=== PATIENT | female | born 1950 | race African-American/Black ===

== ENCOUNTER 2018-02-01 00:16 | Inpatient (IN) ==
[2018-02-01] MEDS ORDERED: diphenhydrAMINE CAP 25 MG CAPSULE PO PRN (00:36)
[2018-02-01] MEDS ORDERED: DEXTROSE 50% 25 GM/50 ML SYRINGE IV PRN ×2 (00:36)
[2018-02-01] MEDS ORDERED: SODIUM PHOSPHATE INJ 13.4 MMOL in SODIUM CHLORIDE 0.9% 250 ML IV PRN (00:36)
[2018-02-01] MEDS ORDERED: INSULIN REGULAR 100 UNIT/ML IV ONE (00:36)
[2018-02-01] MEDS ORDERED: ONDANSETRON 4 MG/2 ML VIAL IV PRN (00:36)
[2018-02-01] MEDS ORDERED: MAGNESIUM SULF RIDER 2 GM in PREMIX 1 EACH IV PRN (00:36)
[2018-02-01] MEDS ORDERED: POTASSIUM CHLORIDE RIDER 10 MEQ in PREMIX 1 EACH IV PRN (00:36)
[2018-02-01] MEDS ORDERED: ALBUTEROL 2.5 MG/3 ML NEB RESP TX PRN (00:36)
[2018-02-01] MEDS ORDERED: MAGNESIUM SULF RIDER 4 GM in PREMIX 1 EACH IV PRN (00:36)
[2018-02-01] MEDS ORDERED: LORazepam 2 MG/1 ML VIAL IV ONE (00:48)
[2018-02-01] MEDS ORDERED: INSULIN REGULAR DRIP 100 ML IV SCH (01:00)
[2018-02-01] MEDS ORDERED: SODIUM BICARBONATE 50 MEQ/50 ML SYRINGE IV ONE (01:33)
[2018-02-01] MEDS ORDERED: LEVOFLOXACIN INJ 500 MG in PREMIX 1 EACH IV SCH (02:30)
[2018-02-01] MEDS: HEPARIN 5,000 UNIT/1 ML VIAL SUBCUT SCH ×3 (03:53→17:32)
[2018-02-01] MEDS: SODIUM CHLOR 0.45% KCL 20 MEQ 20 MEQ/1,000 ML BAG IV SCH ×3 (06:14→17:22)
[2018-02-01] MEDS: NYSTATIN 500,000 UNIT/5 ML UDCUP SWISH/SWAL SCH ×4 (11:06→20:55)
[2018-02-01] MEDS: PANTOPRAZOLE 40 MG VIAL IV SCH (11:06)
[2018-02-01] MEDS ORDERED: AMIODARONE 200 MG TABLET PO SCH (12:30)
[2018-02-01] MEDS ORDERED: METOPROLOL TARTRATE 50 MG TABLET PO SCH (12:30)
[2018-02-01] MEDS ORDERED: SERTRALINE 50 MG TABLET PO SCH (12:30)
[2018-02-01] MEDS: ASPIRIN EC 81 MG TABLET PO SCH (13:27)
[2018-02-01] MEDS: HALOPERIDOL 5 MG/ML AMP IM PRN ×2 (13:44→22:13)
[2018-02-01] MEDS ORDERED: GABAPENTIN 100 MG CAPSULE PO SCH (15:00)
[2018-02-01] MEDS ORDERED: WARFARIN 5 MG TABLET PO SCH (18:00)
[2018-02-02] MEDS: DEXTROSE 5% NACL 0.45% 1,000 ML IV SCH ×2 (01:35→12:43)
[2018-02-02] MEDS: HEPARIN 5,000 UNIT/1 ML VIAL SUBCUT SCH ×3 (03:58→18:30)
[2018-02-02] MEDS: ASPIRIN EC 81 MG TABLET PO SCH (09:00)
[2018-02-02] MEDS: PANTOPRAZOLE 40 MG VIAL IV SCH (09:00)
[2018-02-02] MEDS: CARVEDILOL 6.25 MG TABLET PO SCH ×2 (09:00→21:28)
[2018-02-02] MEDS: NICOTINE 21 MG/24 HR PATCH TRANSDERM SCH (09:00)
[2018-02-02] MEDS: NYSTATIN 500,000 UNIT/5 ML UDCUP SWISH/SWAL SCH ×4 (09:00→21:28)
[2018-02-02] MEDS: INSULIN GLARGINE 100 UNIT/ML SUBCUT SCH (09:00)
[2018-02-02] MEDS ORDERED: GLUCAGON 1 MG VIAL IM PRN (12:00)
[2018-02-02] MEDS ORDERED: MORPHINE 4 MG/1 ML VIAL IV PRN (12:07)
[2018-02-02] MEDS ORDERED: PROMETHAZINE 25 MG/1 ML VIAL IM PRN (12:12)
[2018-02-02] MEDS: cefTRIAXone 1,000 MG in SYRINGE 1 EACH IV SCH ×2 (12:28→16:43)
[2018-02-02] MEDS: INSULIN REGULAR 100 UNIT/ML SUBCUT SCH ×3 (12:30→21:29)
[2018-02-02] MEDS: MEMANTINE 5 MG TABLET PO SCH ×2 (12:30→21:28)
[2018-02-02 13:32] LABS: Allen Test Positive; Pt O2 Delivery Device Room Air
[2018-02-02 13:34] LABS: ABG HCO3 13.8 MMOL/L (20-26); ABG PCO2 40.6 MM HG (35-48); ABG PO2 83.1 MM HG (80-95)
[2018-02-02 13:35] LABS: ABG Base Excess -13.7 MMOL/L (-2.5-2.5); ABG Oxygen Saturation 94.1 % (95-100); ABG TCO2 13.6 MMOL/L (23-27)
[2018-02-02 13:41] LABS: ABG PH 7.162 (7.35-7.45)
[2018-02-02 13:51] LABS: Ammonia 26 UMOL/L (11-32); Lactic Acid 9.1 MMOL/L (0.4-2.0)
[2018-02-02 13:53] LABS: Calcium 8.9 MG/DL (8.5-10.1)
[2018-02-02 13:54] LABS: Osmolality,Calculated 351.5 MOS/KG (273-304); Potassium 3.4 MMOL/L (3.5-5.1)
[2018-02-02 13:56] LABS: VBG HCO3 19.3 MEQ/L (24-28); VBG Oxygen Saturation 84.4 %; VBG PCO2 57.5 MMHG (41-51); VBG PH 7.204; VBG PO2 54.7 MMHG (17-40)
[2018-02-02 13:59] LABS: Calcium 8.5 MG/DL (8.5-10.1)
[2018-02-02 14:00] LABS: Osmolality,Calculated 324.4 MOS/KG (273-304); Potassium 4.8 MMOL/L (3.5-5.1)
[2018-02-02 14:02] LABS: Calcium 8.2 MG/DL (8.5-10.1); Potassium 4.2 MMOL/L (3.5-5.1)
[2018-02-02 14:10] LABS: Osmolality,Calculated 311.4 MOS/KG (273-304); Potassium 5.5 MMOL/L (3.5-5.1)
[2018-02-02 14:17] LABS: Alanine Aminotransferase 13 U/L (13-56); Albumin 3.4 G/DL (3.4-5.0); Alkaline Phosphatase 157 U/L (45-117); Aspartate Amino Transferase 5 U/L (0-37); Bilirubin,Total < 0.39 MG/DL (0.2-1.0); Blood Urea Nitrogen 40 MG/DL (7-18); Calcium 9.3 MG/DL (8.5-10.1); Total Protein 8.2 G/DL (6.4-8.3)
[2018-02-02 14:18] LABS: Glucose 1269 MG/DL (74-106); Osmolality,Calculated 353.4 MOS/KG (273-304); Potassium 3.4 MMOL/L (3.5-5.1); Sodium 140 MMOL/L (136-145)
[2018-02-02 14:30] LABS: Lactic Acid 6.2 MMOL/L (0.4-2.0)
[2018-02-02 14:34] LABS: Calcium 8.7 MG/DL (8.5-10.1); Osmolality,Calculated 343.3 MOS/KG (273-304); Potassium 3.6 MMOL/L (3.5-5.1)
[2018-02-02 14:48] LABS: Hemoglobin 10.8 GM/DL (12.0-16.0); Red Blood Count 3.58 MC/CUMM (3.8-5.5); White Blood Count 20.3 T/CUMM (4-12)
[2018-02-02 14:49] LABS: Basophils % 0.1 % (0.0-0.8); Hematocrit 35.3 VOL% (35.7-47.0); Lymphocytes % 5.8 % (21.3-54.2); Mean Corpuscular HGB Conc 30.6 GM/DL (32-36); Mean Corpuscular Hemoglobin 30 PG (27-34); Mean Corpuscular Volume 98.6 FL (87-102); Mean Platelet Volume 13.7 FL (9.6-12.0); Monocytes % 8.3 % (1.7-12.7); Neutrophils % 84.7 % (38.7-73.9); Platelet Count 196 T/CUMM (130-400)
[2018-02-02 14:50] LABS: Immature Granulocytes % 1.1 %; Immature Granulocytes Absolute 0.22 #; Lymphocytes # 1.2 10*3/uL (1.4-4.0); Monocytes # 1.7 10*3/uL (0.11-0.8); Neutrophils # 17.2 10*3/uL (1.4-7.4)
[2018-02-02 15:54] LABS: Calcium 8.1 MG/DL (8.5-10.1)
[2018-02-02 16:10] LABS: Red Blood Count 3.11 MC/CUMM (3.8-5.5); White Blood Count 18.2 T/CUMM (4-12)
[2018-02-02 16:11] LABS: Hemoglobin 9.2 GM/DL (12.0-16.0); Lymphocytes % 8.5 % (21.3-54.2); Mean Corpuscular HGB Conc 32.9 GM/DL (32-36); Mean Corpuscular Hemoglobin 30 PG (27-34); Mean Platelet Volume 12.8 FL (9.6-12.0); Neutrophils % 85.4 % (38.7-73.9); Platelet Count 195 T/CUMM (130-400); Red Cell Distribution Width 11.8 % (9.3-17.3)
[2018-02-02 16:12] LABS: Basophils % 0.1 % (0.0-0.8); Eosinophils % 0.1 % (0.00-10.9); Immature Granulocytes % 0.6 %; Monocytes % 5.3 % (1.7-12.7); Neutrophils # 15.5 10*3/uL (1.4-7.4)
[2018-02-02 16:16] LABS: Lymphocytes # 1.6 10*3/uL (1.4-4.0)
[2018-02-02 16:18] LABS: PT Patient Result 10.8 SECS
[2018-02-02 16:25] LABS: Urine Color Yellow (Yellow)
[2018-02-02 16:26] LABS: Apearance,Urine Slightly Hazy (Clear); Bilirubin,Urine Negative (Negative); Blood, Urine Small mg/dL (Negative); Glucose,Urine (UA) >=500 mg/dL (Negative); Ketones,Urine Negative (Negative); Nitrite,Urine Negative (Negative); Protein,Urine Negative; Urine Specific Gravity 1.026 (1.001-1.035); Urine Urobilinogen < 2.0 EU/DL (0.2-1.0)
[2018-02-02 16:27] LABS: Bacteria,Urine Occasional /HPF (Few); RBC,Urine <1 /HPF (0-4); WBC,Urine 1 /HPF (0-6)
[2018-02-02 16:35] LABS: PT Patient Result 10.8 SECS
[2018-02-02 16:37] LABS: Hematocrit 29.9 VOL% (35.7-47.0); Mean Corpuscular HGB Conc 33.4 GM/DL (32-36); Mean Corpuscular Hemoglobin 30 PG (27-34); Mean Corpuscular Volume 90.6 FL (87-102); Mean Platelet Volume 13.3 FL (9.6-12.0); Neutrophils % 77.8 % (38.7-73.9); Platelet Count 188 T/CUMM (130-400); Red Cell Distribution Width 11.7 % (9.3-17.3); White Blood Count 17.7 T/CUMM (4-12)
[2018-02-02 16:38] LABS: Basophils % 0.2 % (0.0-0.8); Eosinophils # 0.1 10*3/uL (0.0-0.87); Eosinophils % 0.6 % (0.00-10.9); Immature Granulocytes % 0.4 %; Immature Granulocytes Absolute 0.07 #; Lymphocytes # 2.7 10*3/uL (1.4-4.0); Lymphocytes % 15.1 % (21.3-54.2); Monocytes # 1.1 10*3/uL (0.11-0.8); Monocytes % 5.9 % (1.7-12.7); Neutrophils # 13.8 10*3/uL (1.4-7.4)
[2018-02-02 16:40] LABS: Bilirubin,Total 0.5 MG/DL (0.2-1.0); Calcium 8.4 MG/DL (8.5-10.1); Total Protein 7.4 G/DL (6.4-8.3)
[2018-02-02] MEDS: DONEPEZIL 5 MG TABLET PO SCH (21:27)
[2018-02-03 02:45] LABS: Calcium 7.6 MG/DL (8.5-10.1); Osmolality,Calculated 290.7 MOS/KG (273-304); Potassium 3.7 MMOL/L (3.5-5.1)
[2018-02-03] MEDS: HEPARIN 5,000 UNIT/1 ML VIAL SUBCUT SCH ×3 (03:04→18:07)
[2018-02-03 07:09] LABS: Total Cells Counted 0
[2018-02-03] MEDS: INSULIN REGULAR 100 UNIT/ML SUBCUT SCH ×4 (08:21→23:29)
[2018-02-03] MEDS: MEMANTINE 5 MG TABLET PO SCH ×2 (08:54→23:29)
[2018-02-03] MEDS: CARVEDILOL 6.25 MG TABLET PO SCH ×2 (08:54→23:28)
[2018-02-03] MEDS: INSULIN GLARGINE 100 UNIT/ML SUBCUT SCH (08:55)
[2018-02-03] MEDS: ASPIRIN EC 81 MG TABLET PO SCH (08:55)
[2018-02-03] MEDS: NYSTATIN 500,000 UNIT/5 ML UDCUP SWISH/SWAL SCH ×4 (08:55→23:29)
[2018-02-03] MEDS: NICOTINE 21 MG/24 HR PATCH TRANSDERM SCH ×3 (09:00→10:17)
[2018-02-03] MEDS: SODIUM CHLOR 0.45% KCL 20 MEQ 20 MEQ/1,000 ML BAG IV SCH (09:07)
[2018-02-03] MEDS ORDERED: INSULIN GLARGINE 100 UNIT/ML SUBCUT SCH (13:31)
[2018-02-03] MEDS ORDERED: INSULIN GLARGINE 100 UNIT/ML SUBCUT ONE (14:00)
[2018-02-03] MEDS: INSULIN LISPRO 100 UNIT/ML SUBCUT SCH (17:12)
[2018-02-03] MEDS: DONEPEZIL 5 MG TABLET PO SCH (23:29)
[2018-02-04] MEDS: HEPARIN 5,000 UNIT/1 ML VIAL SUBCUT SCH ×2 (04:48→10:39)
[2018-02-04] MEDS: SODIUM CHLOR 0.45% KCL 20 MEQ 20 MEQ/1,000 ML BAG IV SCH ×2 (04:49→11:17)
[2018-02-04 05:56] LABS: Basophils % 0.1 % (0.0-0.8); Eosinophils # 0.1 10*3/uL (0.0-0.87); Hematocrit 25.9 VOL% (35.7-47.0); Hemoglobin 8.5 GM/DL (12.0-16.0); Immature Granulocytes % 0.4 %; Immature Granulocytes Absolute 0.04 #; Lymphocytes # 2.5 10*3/uL (1.4-4.0); Mean Corpuscular HGB Conc 32.8 GM/DL (32-36); Mean Corpuscular Hemoglobin 30 PG (27-34); Mean Corpuscular Volume 91.5 FL (87-102); Mean Platelet Volume 12.8 FL (9.6-12.0); Monocytes # 0.6 10*3/uL (0.11-0.8); Neutrophils % 65.5 % (38.7-73.9); Platelet Count 141 T/CUMM (130-400); Red Blood Count 2.83 MC/CUMM (3.8-5.5); Red Cell Distribution Width 11.5 % (9.3-17.3); White Blood Count 9.1 T/CUMM (4-12)
[2018-02-04 06:08] LABS: Calcium 7.8 MG/DL (8.5-10.1); Osmolality,Calculated 281.1 MOS/KG (273-304); Potassium 4.3 MMOL/L (3.5-5.1)
[2018-02-04] MEDS: NICOTINE 21 MG/24 HR PATCH TRANSDERM SCH (08:19)
[2018-02-04] MEDS: CARVEDILOL 6.25 MG TABLET PO SCH (08:19)
[2018-02-04] MEDS: ASPIRIN EC 81 MG TABLET PO SCH (08:19)
[2018-02-04] MEDS: INSULIN REGULAR 100 UNIT/ML SUBCUT SCH ×2 (08:19→12:04)
[2018-02-04] MEDS: NYSTATIN 500,000 UNIT/5 ML UDCUP SWISH/SWAL SCH (08:19)
[2018-02-04] MEDS: INSULIN LISPRO 100 UNIT/ML SUBCUT SCH ×2 (08:20→12:03)
[2018-02-04] MEDS: MEMANTINE 5 MG TABLET PO SCH (09:17)
[2018-02-04 13:18] VITALS: BP 128/86
== END 2018-02-04 12:40 | DRG 638 ==
LOC: N.ICU 00:16 → SUATTDRO 00:16 → N.5E 02-03 21:45
PROVIDERS: ADMIT Internal Medicine; ATTEND Internal Medicine Geriatric Medicine

== ENCOUNTER 2018-12-21 17:26 | Inpatient (IN) ==
[2018-12-21] MEDS ORDERED: SODIUM PHOSPHATE INJ 13.6 MMOL in SODIUM CHLORIDE 0.9% 250 ML IV PRN (19:34)
[2018-12-21] MEDS ORDERED: MAGNESIUM SULF RIDER 4 GM in PREMIX 1 EACH IV PRN (19:34)
[2018-12-21] MEDS ORDERED: POTASSIUM CHLORIDE RIDER 10 MEQ in PREMIX 1 EACH IV PRN (19:34)
[2018-12-21] MEDS ORDERED: SODIUM BICARB INJ 100 MEQ in STERILE WATER INJ 400 ML IV PRN (19:34)
[2018-12-21] MEDS ORDERED: DEXTROSE 50% 25 GM/50 ML VIAL IV PRN ×2 (19:34)
[2018-12-21] MEDS ORDERED: INSULIN REGULAR 100 UNIT/ML IV ONE (19:34)
[2018-12-21] MEDS ORDERED: SODIUM CHLORIDE 0.9% 1,000 ML IV ONE (19:34)
[2018-12-21] MEDS: INSULIN REGULAR DRIP 100 ML IV SCH (19:40)
[2018-12-21 19:51] LABS: ABG Base Excess -10.5 MMOL/L (-2.5-2.5); ABG HCO3 16.1 MMOL/L (20-26); ABG Oxygen Saturation 96.6 % (95-100); ABG PCO2 39.8 MM HG (35-48); ABG PO2 92.5 MM HG (80-95); ABG TCO2 15.2 MMOL/L (23-27)
[2018-12-21 20:04] LABS: Basophils % 0.1 % (0.0-0.8); Hematocrit 37.9 VOL% (35.7-47.0); Hemoglobin 11.4 GM/DL (12.0-16.0); Immature Granulocytes % 0.7 %; Immature Granulocytes Absolute 0.11 #; Lymphocytes # 0.8 10*3/uL (1.4-4.0); Lymphocytes % 5.6 % (21.3-54.2); Mean Corpuscular HGB Conc 30.1 GM/DL (32-36); Mean Corpuscular Volume 97.4 FL (87-102); Mean Platelet Volume 13.2 FL (9.6-12.0); Monocytes % 1.9 % (1.7-12.7); Neutrophils % 91.7 % (38.7-73.9); Platelet Count 257 T/CUMM (130-400); Red Blood Count 3.89 MC/CUMM (3.8-5.5); Red Cell Distribution Width 12.6 % (9.3-17.3); White Blood Count 14.7 T/CUMM (4-12)
[2018-12-21 20:24] LABS: Calcium 9.4 MG/DL (8.5-10.1); Osmolality,Calculated 357.7 MOS/KG (273-304)
[2018-12-21 20:24] LABS: Apearance,Urine Slightly Hazy (Clear); Bilirubin,Urine Negative (Negative); Blood, Urine Small mg/dL (Negative); Glucose,Urine (UA) >=500 mg/dL (Negative); Ketones,Urine 5 mg/dL (Negative); Mucus,Urine Occasional /LPF (Occasional); Nitrite,Urine Negative (Negative); Protein,Urine Negative; RBC,Urine <1 /HPF (0-4); Urine Color Yellow (Yellow); Urine Specific Gravity 1.025 (1.001-1.035); Urine Urobilinogen < 2.0 EU/DL (0.2-1.0); WBC,Urine 2 /HPF (0-6)
[2018-12-21 20:26] LABS: Alanine Aminotransferase 16 U/L (13-56); Albumin 3.7 G/DL (3.4-5.0); Alkaline Phosphatase 162 U/L (45-117); Aspartate Amino Transferase 10 U/L (0-37); Bilirubin,Direct < 0.100 MG/DL (0.0-0.20); Bilirubin,Indirect 0.6 MG/DL (0.0-1.0); Total Protein 8.3 G/DL (6.4-8.3)
[2018-12-21] MEDS: SODIUM CHLORIDE 0.9% 1,000 ML IV SCH ×2 (20:58→23:05)
[2018-12-21 21:15] LABS: Hepatitis B Core IgM Quant 0.09 Index; Hepatitis B Surface Ag Quant < 0.10 Index; Hepatitis B Surface Ag Result Negative (Negative); Hepatitis C Virus Ab Quant 0.19 Index; Hepatitis C Virus Ab Result Negative (Negative)
[2018-12-21 21:21] LABS: Barbiturates Screen,Urine Negative (Negative); Benzodiazepines Screen,Urine Negative (Negative); Cannabinoid Screen,Urine Negative (Negative); Opiate Screen,Urine Negative (Negative); Phencyclidine Screen,Urine Negative (Negative)
[2018-12-21 21:36] LABS: Anisocytosis Slight; Lymphocytes 2 % (20-55); Macrocytosis Slight; Microcytosis Slight; Platelet Estimate Normal; Segmented Neutrophils 98 % (50-85); Total Cells Counted 100
[2018-12-21] MEDS ORDERED: INFLUENZA VIRUS VACCINE 0.5 ML SYRINGE IM ONE (22:22)
[2018-12-22 00:17] LABS: Calcium 9.7 MG/DL (8.5-10.1); Osmolality,Calculated 354.8 MOS/KG (273-304)
[2018-12-22] MEDS ORDERED: SODIUM CHLORIDE 0.9% 1,000 ML IV SCH (00:38)
[2018-12-22 00:56] LABS: ABG HCO3 15.1 MMOL/L (20-26); ABG Oxygen Saturation 96.9 % (95-100); ABG PCO2 38.1 MM HG (35-48); ABG PH 7.212 (7.35-7.45); ABG PO2 95.8 MM HG (80-95); ABG TCO2 14.2 MMOL/L (23-27)
[2018-12-22 02:55] LABS: Basophils % 0.1 % (0.0-0.8); Eosinophils % 0.1 % (0.00-10.9); Hematocrit 30.2 VOL% (35.7-47.0); Hemoglobin 10.1 GM/DL (12.0-16.0); Immature Granulocytes % 0.5 %; Immature Granulocytes Absolute 0.09 #; Lymphocytes % 5.6 % (21.3-54.2); Mean Corpuscular HGB Conc 33.4 GM/DL (32-36); Mean Corpuscular Volume 88.6 FL (87-102); Mean Platelet Volume 12.8 FL (9.6-12.0); Monocytes % 6.5 % (1.7-12.7); Neutrophils % 87.2 % (38.7-73.9); Platelet Count 201 T/CUMM (130-400); Red Blood Count 3.41 MC/CUMM (3.8-5.5); Red Cell Distribution Width 12.2 % (9.3-17.3); White Blood Count 17.4 T/CUMM (4-12)
[2018-12-22 03:17] LABS: Calcium 9.1 MG/DL (8.5-10.1); Osmolality,Calculated 348.3 MOS/KG (273-304)
[2018-12-22 04:34] LABS: ABG Base Excess -8.7 MMOL/L (-2.5-2.5); ABG HCO3 17.1 MMOL/L (20-26); ABG Oxygen Saturation 96.6 % (95-100); ABG PCO2 36.4 MM HG (35-48); ABG PH 7.289 (7.35-7.45); ABG TCO2 18.2 MMOL/L (23-27)
[2018-12-22] MEDS ORDERED: VANCOMYCIN INJ 750 MG in SODIUM CHLORIDE 0.9% 250 ML IV PRN (05:32)
[2018-12-22] MEDS: MEROPENEM 500 MG in SODIUM CHLORIDE 0.9% 100 ML IV SCH ×2 (05:41→19:14)
[2018-12-22] MEDS ORDERED: VANCOMYCIN INJ 1,250 MG in SODIUM CHLORIDE 0.9% 250 ML IV ONE (06:30)
[2018-12-22 08:32] LABS: Calcium 9.1 MG/DL (8.5-10.1); Osmolality,Calculated 348.6 MOS/KG (273-304)
[2018-12-22] MEDS: LACTATED RINGERS 1,000 ML IV SCH ×2 (09:03→15:34)
[2018-12-22] MEDS: ASPIRIN EC 81 MG TABLET PO SCH (09:36)
[2018-12-22] MEDS: carvediloL 6.25 MG TABLET PO SCH ×2 (09:36→20:13)
[2018-12-22] MEDS: INSULIN GLARGINE 100 UNIT/ML SUBCUT SCH (09:36)
[2018-12-22] MEDS: MEMANTINE 10 MG TABLET PO SCH ×2 (09:37→20:12)
[2018-12-22] MEDS: INSULIN REGULAR DRIP 100 ML IV SCH (11:14)
[2018-12-22] MEDS ORDERED: SODIUM CHLORIDE 0.45% 1,000 ML IV SCH (12:38)
[2018-12-22 12:44] LABS: Calcium 8.4 MG/DL (8.5-10.1); Osmolality,Calculated 333.3 MOS/KG (273-304)
[2018-12-22] MEDS: DEXTROSE 5% LACTATED RINGERS 1,000 ML IV SCH ×2 (14:30→19:28)
[2018-12-22] MEDS: DEXTROSE 10% 250 ML BAG IV PRN ×3 (15:20→21:20)
[2018-12-22] MEDS ORDERED: DEXTROSE 10% 250 ML IV ONE (15:21)
[2018-12-22 16:35] LABS: Calcium 8.7 MG/DL (8.5-10.1); Osmolality,Calculated 327.7 MOS/KG (273-304)
[2018-12-22] MEDS: DONEPEZIL 5 MG TABLET PO SCH (20:13)
[2018-12-23] MEDS: DEXTROSE 5% LACTATED RINGERS 1,000 ML IV SCH ×2 (00:30→05:30)
[2018-12-23] MEDS: DEXTROSE 10% 250 ML BAG IV PRN ×2 (02:27→04:12)
[2018-12-23 05:07] LABS: Calcium 8.5 MG/DL (8.5-10.1); Osmolality,Calculated 323.6 MOS/KG (273-304)
[2018-12-23] MEDS: MEROPENEM 500 MG in SODIUM CHLORIDE 0.9% 100 ML IV SCH ×2 (05:50→18:17)
[2018-12-23] MEDS: INSULIN REGULAR DRIP 100 ML IV SCH (07:14)
[2018-12-23] MEDS: MAGNESIUM SULF RIDER 2 GM in PREMIX 1 EACH IV PRN (07:28)
[2018-12-23] MEDS ORDERED: MAGNESIUM SULF RIDER 2 GM in PREMIX 1 EACH IV ONE (07:38)
[2018-12-23] MEDS: DEXTROSE 5% 1,000 ML IV SCH ×3 (07:43→20:30)
[2018-12-23] MEDS: POTASSIUM CHLORIDE RIDER 10 MEQ in PREMIX 1 EACH IV SCH ×2 (07:49→08:50)
[2018-12-23] MEDS: INSULIN GLARGINE 100 UNIT/ML SUBCUT SCH (08:51)
[2018-12-23] MEDS: ASPIRIN EC 81 MG TABLET PO SCH (08:52)
[2018-12-23] MEDS: carvediloL 6.25 MG TABLET PO SCH ×2 (08:52→20:31)
[2018-12-23] MEDS: MEMANTINE 10 MG TABLET PO SCH ×2 (08:52→20:31)
[2018-12-23] MEDS ORDERED: VANCOMYCIN INJ 750 MG in SODIUM CHLORIDE 0.9% 250 ML IV SCH (09:00)
[2018-12-23] MEDS: INSULIN LISPRO 100 UNIT/ML SUBCUT SCH ×3 (10:30→18:17)
[2018-12-23] MEDS: DONEPEZIL 5 MG TABLET PO SCH (20:31)
[2018-12-24] MEDS: INSULIN LISPRO 100 UNIT/ML SUBCUT SCH ×7 (03:13→23:52)
[2018-12-24] MEDS: DEXTROSE 5% 1,000 ML IV SCH ×4 (04:00→21:40)
[2018-12-24 05:11] LABS: Calcium 7.8 MG/DL (8.5-10.1); Osmolality,Calculated 291.7 MOS/KG (273-304)
[2018-12-24] MEDS: MEROPENEM 500 MG in SODIUM CHLORIDE 0.9% 100 ML IV SCH ×2 (07:05→19:17)
[2018-12-24] MEDS: carvediloL 6.25 MG TABLET PO SCH ×2 (09:02→21:39)
[2018-12-24] MEDS: INSULIN GLARGINE 100 UNIT/ML SUBCUT SCH (09:02)
[2018-12-24] MEDS: MEMANTINE 10 MG TABLET PO SCH ×2 (09:02→21:39)
[2018-12-24] MEDS: ASPIRIN EC 81 MG TABLET PO SCH (09:02)
[2018-12-24] MEDS: DONEPEZIL 5 MG TABLET PO SCH (21:39)
[2018-12-25] MEDS: DEXTROSE 5% 1,000 ML IV SCH ×3 (00:24→22:06)
[2018-12-25] MEDS: INSULIN LISPRO 100 UNIT/ML SUBCUT SCH ×6 (02:22→22:08)
[2018-12-25] MEDS: ACETAMINOPHEN 325 MG TABLET PO PRN ×2 (02:46→17:32)
[2018-12-25 05:15] LABS: Calcium 7.7 MG/DL (8.5-10.1); Osmolality,Calculated 290.8 MOS/KG (273-304)
[2018-12-25 05:24] LABS: Basophils % 0.2 % (0.0-0.8); Eosinophils # 0.2 10*3/uL (0.0-0.87); Eosinophils % 3.8 % (0.00-10.9); Hematocrit 24.3 VOL% (35.7-47.0); Immature Granulocytes % 0.5 %; Immature Granulocytes Absolute 0.03 #; Lymphocytes # 1.8 10*3/uL (1.4-4.0); Mean Corpuscular HGB Conc 33.3 GM/DL (32-36); Mean Corpuscular Volume 87.4 FL (87-102); Monocytes % 9.4 % (1.7-12.7); Neutrophils % 55.1 % (38.7-73.9); Red Blood Count 2.78 MC/CUMM (3.8-5.5); Red Cell Distribution Width 11.6 % (9.3-17.3)
[2018-12-25 05:25] LABS: Hemoglobin 8.1 GM/DL (12.0-16.0); Platelet Count 126 T/CUMM (130-400); White Blood Count 5.8 T/CUMM (4-12)
[2018-12-25] MEDS: MEROPENEM 500 MG in SODIUM CHLORIDE 0.9% 100 ML IV SCH (05:36)
[2018-12-25] MEDS: MAGNESIUM SULF RIDER 2 GM in PREMIX 1 EACH IV PRN (06:46)
[2018-12-25] MEDS: ASPIRIN EC 81 MG TABLET PO SCH (09:13)
[2018-12-25] MEDS: MEMANTINE 10 MG TABLET PO SCH ×2 (09:13→22:05)
[2018-12-25] MEDS: carvediloL 6.25 MG TABLET PO SCH ×2 (09:13→22:05)
[2018-12-25] MEDS: POTASSIUM CHLORIDE 20 MEQ TABLET PO PRN ×3 (09:47→18:31)
[2018-12-25] MEDS: INSULIN GLARGINE 100 UNIT/ML SUBCUT SCH (09:47)
[2018-12-25] MEDS ORDERED: DOCUSATE SODIUM 100 MG CAPSULE PO PRN (17:27)
[2018-12-25] MEDS: DONEPEZIL 5 MG TABLET PO SCH (22:05)
[2018-12-26] MEDS: INSULIN LISPRO 100 UNIT/ML SUBCUT SCH ×5 (01:14→21:06)
[2018-12-26] MEDS: DEXTROSE 10% 250 ML BAG IV PRN (05:29)
[2018-12-26 06:16] LABS: Basophils % 0.2 % (0.0-0.8); Eosinophils # 0.3 10*3/uL (0.0-0.87); Eosinophils % 6.1 % (0.00-10.9); Hematocrit 25.4 VOL% (35.7-47.0); Hemoglobin 8.3 GM/DL (12.0-16.0); Immature Granulocytes % 0.2 %; Immature Granulocytes Absolute 0.01 #; Lymphocytes # 1.8 10*3/uL (1.4-4.0); Lymphocytes % 33.5 % (21.3-54.2); Mean Corpuscular HGB Conc 32.7 GM/DL (32-36); Mean Corpuscular Volume 88.8 FL (87-102); Mean Platelet Volume 11.4 FL (9.6-12.0); Monocytes % 9.6 % (1.7-12.7); Neutrophils % 50.4 % (38.7-73.9); Platelet Count 130 T/CUMM (130-400); Red Blood Count 2.86 MC/CUMM (3.8-5.5); Red Cell Distribution Width 11.8 % (9.3-17.3); White Blood Count 5.2 T/CUMM (4-12)
[2018-12-26 06:38] LABS: Calcium 7.7 MG/DL (8.5-10.1); Osmolality,Calculated 283.3 MOS/KG (273-304)
[2018-12-26] MEDS: carvediloL 6.25 MG TABLET PO SCH ×2 (08:34→21:06)
[2018-12-26] MEDS: MEMANTINE 10 MG TABLET PO SCH ×2 (08:34→21:06)
[2018-12-26] MEDS: ASPIRIN EC 81 MG TABLET PO SCH (08:34)
[2018-12-26] MEDS: POTASSIUM CHLORIDE 20 MEQ TABLET PO PRN (08:34)
[2018-12-26] MEDS: MAGNESIUM SULF RIDER 2 GM in PREMIX 1 EACH IV PRN (08:35)
[2018-12-26] MEDS ORDERED: INSULIN GLARGINE 100 UNIT/ML SUBCUT SCH (09:00)
[2018-12-26] MEDS ORDERED: INSULIN LISPRO 100 UNIT/ML SUBCUT SCH (16:00)
[2018-12-26] MEDS: DEXTROSE 5% 1,000 ML IV SCH (17:11)
[2018-12-26] MEDS: ACETAMINOPHEN 325 MG TABLET PO PRN (18:19)
[2018-12-26] MEDS: DONEPEZIL 5 MG TABLET PO SCH (21:06)
[2018-12-27] MEDS: INSULIN LISPRO 100 UNIT/ML SUBCUT SCH ×3 (00:49→09:15)
[2018-12-27] MEDS: carvediloL 6.25 MG TABLET PO SCH (09:15)
[2018-12-27] MEDS: MEMANTINE 10 MG TABLET PO SCH (09:15)
[2018-12-27] MEDS: ASPIRIN EC 81 MG TABLET PO SCH (09:15)
[2018-12-27] MEDS: DEXTROSE 5% 1,000 ML IV SCH (09:17)
[2018-12-27] MEDS ORDERED: INSULIN LISPRO 100 UNIT/ML SUBCUT SCH (11:30)
[2018-12-27 12:36] VITALS: BP 132/71
== END 2018-12-27 15:58 | disposition home health service (06) | DRG 638 ==
LOC: SUATTDRO 18:57 → N.CC 18:57 → N.5E 12-23 15:00
PROVIDERS: ADMIT Internal Medicine; ATTEND Internal Medicine

== ENCOUNTER 2018-12-31 19:46 | Inpatient (IN) ==
[2018-12-31] MEDS ORDERED: GLUCAGON 1 MG VIAL IM PRN (21:54)
[2018-12-31] MEDS ORDERED: DEXTROSE 50% 25 GM/50 ML VIAL IV PRN ×3 (21:54→21:56)
[2018-12-31] MEDS ORDERED: ONDANSETRON 4 MG/2 ML VIAL IV PRN (21:54)
[2018-12-31] MEDS ORDERED: SODIUM CHLORIDE 0.9% 1,000 ML IV ONE (21:56)
[2018-12-31] MEDS ORDERED: SODIUM CHLORIDE 0.9% IV PRN (21:56)
[2018-12-31] MEDS ORDERED: SODIUM BICARB INJ 100 MEQ in STERILE WATER INJ 400 ML IV PRN (21:56)
[2018-12-31] MEDS ORDERED: MAGNESIUM SULF RIDER 4 GM in PREMIX 1 EACH IV PRN (21:56)
[2018-12-31] MEDS ORDERED: SODIUM PHOSPHATE IV PRN (21:56)
[2018-12-31] MEDS ORDERED: MAGNESIUM SULF RIDER 2 GM in PREMIX 1 EACH IV PRN (21:56)
[2018-12-31] MEDS ORDERED: INSULIN REGULAR DRIP 100 ML IV SCH (22:30)
[2018-12-31] MEDS ORDERED: INSULIN REGULAR 100 UNIT/ML IV ONE (22:30)
[2018-12-31 22:36] LABS: Calcium 9.8 MG/DL (8.5-10.1); Osmolality,Calculated 321.4 MOS/KG (273-304)
[2018-12-31 22:44] LABS: Basophils % 0.1 % (0.0-0.8); Eosinophils % 0.1 % (0.00-10.9); Hematocrit 26.8 VOL% (35.7-47.0); Hemoglobin 8.7 GM/DL (12.0-16.0); Immature Granulocytes % 0.5 %; Immature Granulocytes Absolute 0.07 #; Lymphocytes # 1.3 10*3/uL (1.4-4.0); Lymphocytes % 9.3 % (21.3-54.2); Mean Corpuscular HGB Conc 32.5 GM/DL (32-36); Mean Corpuscular Volume 90.8 FL (87-102); Mean Platelet Volume 11.3 FL (9.6-12.0); Monocytes % 8.2 % (1.7-12.7); Neutrophils % 81.8 % (38.7-73.9); Platelet Count 343 T/CUMM (130-400); Red Blood Count 2.95 MC/CUMM (3.8-5.5); Red Cell Distribution Width 11.9 % (9.3-17.3); White Blood Count 13.5 T/CUMM (4-12)
[2018-12-31 23:15] LABS: ABG Base Excess -6.3 MMOL/L (-2.5-2.5); ABG HCO3 19.2 MMOL/L (20-26); ABG PCO2 36.1 MM HG (35-48); ABG PH 7.329 (7.35-7.45); ABG TCO2 17.5 MMOL/L (23-27); Allen Test Positive; Pt O2 Delivery Device Room Air
[2018-12-31] MEDS ORDERED: HALOPERIDOL 5 MG/ML AMP IM ONE (23:35)
[2018-12-31] MEDS: SODIUM CHLORIDE 0.9% 1,000 ML IV SCH (23:49)
[2019-01-01] MEDS ORDERED: hydrALAZINE 20 MG/1 ML VIAL IV PRN (00:38)
[2019-01-01] MEDS: SODIUM CHLORIDE 0.9% 1,000 ML IV SCH (01:53)
[2019-01-01 02:43] LABS: Basophils % 0.1 % (0.0-0.8); Eosinophils % 0.3 % (0.00-10.9); Hematocrit 25.6 VOL% (35.7-47.0); Hemoglobin 8.5 GM/DL (12.0-16.0); Immature Granulocytes % 0.6 %; Immature Granulocytes Absolute 0.07 #; Lymphocytes % 15.9 % (21.3-54.2); Mean Corpuscular HGB Conc 33.2 GM/DL (32-36); Mean Corpuscular Volume 88.9 FL (87-102); Mean Platelet Volume 11.1 FL (9.6-12.0); Monocytes % 7.9 % (1.7-12.7); Neutrophils % 75.2 % (38.7-73.9); Platelet Count 278 T/CUMM (130-400); Red Blood Count 2.88 MC/CUMM (3.8-5.5); Red Cell Distribution Width 11.8 % (9.3-17.3); White Blood Count 12.3 T/CUMM (4-12)
[2019-01-01 02:57] LABS: Calcium 8.6 MG/DL (8.5-10.1); Osmolality,Calculated 314.3 MOS/KG (273-304)
[2019-01-01] MEDS ORDERED: SODIUM CHLORIDE 0.9% 1,000 ML IV SCH (02:57)
[2019-01-01 03:43] LABS: Sedimentation Rate-Westergren 122 MM/HR (0-30)
[2019-01-01] MEDS ORDERED: SODIUM CHLORIDE 0.45% 1,000 ML IV SCH ×2 (04:00→14:57)
[2019-01-01] MEDS ORDERED: INSULIN REGULAR 100 UNIT/ML IV PRN (05:15)
[2019-01-01 06:26] LABS: Calcium 8.2 MG/DL (8.5-10.1); Osmolality,Calculated 309.9 MOS/KG (273-304)
[2019-01-01] MEDS ORDERED: SODIUM CHLOR 0.45% KCL 20 MEQ 20 MEQ/1,000 ML BAG IV SCH (08:00)
[2019-01-01] MEDS ORDERED: GLUCAGON 1 MG VIAL IM PRN (08:22)
[2019-01-01] MEDS ORDERED: DEXTROSE 10% 250 ML BAG IV PRN (08:22)
[2019-01-01] MEDS: ENOXAPARIN 30 MG/0.3 ML SYRINGE SUBCUT SCH (08:37)
[2019-01-01] MEDS: PANTOPRAZOLE 40 MG TABLET PO SCH (08:37)
[2019-01-01] MEDS: amLODIPine 5 MG TABLET PO SCH (08:37)
[2019-01-01] MEDS: DEXT 5% NACL 0.45% KCL 10 MEQ 10 MEQ/1,000 ML BAG IV SCH ×2 (08:58→16:57)
[2019-01-01] MEDS: INSULIN GLARGINE 100 UNIT/ML SUBCUT SCH (08:58)
[2019-01-01 11:58] LABS: Folate 10.4 NG/ML (5.4-24.0); Vitamin B12 262 PG/ML (211-911)
[2019-01-01] MEDS: INSULIN LISPRO 100 UNIT/ML SUBCUT SCH ×3 (12:32→20:03)
[2019-01-01 14:52] LABS: Apearance,Urine Slightly Hazy (Clear); Bacteria,Urine Occasional /HPF (Few); Bilirubin,Urine Negative (Negative); Blood, Urine Small mg/dL (Negative); Glucose,Urine (UA) >=500 mg/dL (Negative); Hyaline Casts,Urine 1 /LPF (0-3); Ketones,Urine Negative (Negative); Mucus,Urine Occasional /LPF (Occasional); Nitrite,Urine Positive (Negative); Protein,Urine Negative; RBC,Urine 6 /HPF (0-4); Squamous Epithelial Cell,Urine Occasional /HPF (0-10); Urine Color Yellow (Yellow); Urine Specific Gravity 1.013 (1.001-1.035); Urine Urobilinogen < 2.0 EU/DL (0.2-1.0); WBC,Urine 52 /HPF (0-6)
[2019-01-02] MEDS: DEXT 5% NACL 0.45% KCL 10 MEQ 10 MEQ/1,000 ML BAG IV SCH ×3 (00:26→17:38)
[2019-01-02] MEDS: INSULIN LISPRO 100 UNIT/ML SUBCUT SCH ×6 (00:26→21:45)
[2019-01-02] MEDS: ACETAMINOPHEN 325 MG TABLET PO PRN ×2 (02:23→20:06)
[2019-01-02] MEDS ORDERED: LORazepam 2 MG/1 ML VIAL IV ONE (03:45)
[2019-01-02 04:56] LABS: Basophils % 0.2 % (0.0-0.8); Eosinophils # 0.2 10*3/uL (0.0-0.87); Eosinophils % 1.9 % (0.00-10.9); Hemoglobin 7.7 GM/DL (12.0-16.0); Immature Granulocytes % 0.4 %; Immature Granulocytes Absolute 0.05 #; Lymphocytes # 2.5 10*3/uL (1.4-4.0); Lymphocytes % 22.3 % (21.3-54.2); Mean Corpuscular HGB Conc 32.1 GM/DL (32-36); Mean Corpuscular Volume 92.7 FL (87-102); Mean Platelet Volume 10.8 FL (9.6-12.0); Monocytes % 5.9 % (1.7-12.7); Neutrophils % 69.3 % (38.7-73.9); Platelet Count 265 T/CUMM (130-400); Red Blood Count 2.59 MC/CUMM (3.8-5.5); Red Cell Distribution Width 12.1 % (9.3-17.3); White Blood Count 11.3 T/CUMM (4-12)
[2019-01-02 05:13] LABS: Calcium 7.9 MG/DL (8.5-10.1); Osmolality,Calculated 288.7 MOS/KG (273-304)
[2019-01-02] MEDS: POTASSIUM CHLORIDE RIDER 10 MEQ in PREMIX 1 EACH IV PRN ×2 (05:45→06:41)
[2019-01-02] MEDS ORDERED: INFLUENZA VIRUS VACCINE 0.5 ML SYRINGE IM ONE (08:00)
[2019-01-02] MEDS ORDERED: MAGNESIUM SULF RIDER 4 GM in PREMIX 1 EACH IV ONE (08:43)
[2019-01-02] MEDS: ENOXAPARIN 30 MG/0.3 ML SYRINGE SUBCUT SCH (08:50)
[2019-01-02] MEDS: MEMANTINE 10 MG TABLET PO SCH ×2 (08:51→20:07)
[2019-01-02] MEDS: PANTOPRAZOLE 40 MG TABLET PO SCH (08:51)
[2019-01-02] MEDS: INSULIN GLARGINE 100 UNIT/ML SUBCUT SCH (08:53)
[2019-01-02] MEDS: amLODIPine 5 MG TABLET PO SCH (08:54)
[2019-01-02 09:19] LABS: Hemoglobin A1 (Alkaline) 98.3 % (96.5-98.5); Hemoglobin A2 (Alkaline) 1.7 % (1.5-3.5)
[2019-01-02] MEDS ORDERED: MAGNESIUM SULF RIDER 2 GM in PREMIX 1 EACH IV ONE (09:45)
[2019-01-02] MEDS: DONEPEZIL 5 MG TABLET PO SCH (20:07)
[2019-01-03] MEDS: INSULIN LISPRO 100 UNIT/ML SUBCUT SCH ×6 (01:04→21:23)
[2019-01-03] MEDS: DEXT 5% NACL 0.45% KCL 10 MEQ 10 MEQ/1,000 ML BAG IV SCH (01:59)
[2019-01-03 06:36] LABS: Calcium 7.9 MG/DL (8.5-10.1); Osmolality,Calculated 281.8 MOS/KG (273-304)
[2019-01-03] MEDS ORDERED: MAGNESIUM HYDROXIDE SUSP 30 ML UDCUP PO PRN (07:43)
[2019-01-03] MEDS: ENOXAPARIN 40 MG/0.4 ML SYRINGE SUBCUT SCH (08:37)
[2019-01-03] MEDS: INSULIN GLARGINE 100 UNIT/ML SUBCUT SCH (08:37)
[2019-01-03] MEDS: DOCUSATE SODIUM 100 MG CAPSULE PO SCH (08:38)
[2019-01-03] MEDS: amLODIPine 5 MG TABLET PO SCH (08:38)
[2019-01-03] MEDS: MEMANTINE 10 MG TABLET PO SCH ×2 (08:38→21:16)
[2019-01-03] MEDS: POLYETHYLENE GLYCOL POWDER 17 GM PACK PO SCH (08:38)
[2019-01-03] MEDS: PANTOPRAZOLE 40 MG TABLET PO SCH (08:38)
[2019-01-03] MEDS: LEVOFLOXACIN 500 MG TABLET PO SCH (13:55)
[2019-01-03] MEDS: DONEPEZIL 5 MG TABLET PO SCH (21:16)
[2019-01-04] MEDS: INSULIN LISPRO 100 UNIT/ML SUBCUT SCH ×6 (04:22→22:01)
[2019-01-04] MEDS: DOCUSATE SODIUM 100 MG CAPSULE PO SCH (08:39)
[2019-01-04] MEDS: ENOXAPARIN 40 MG/0.4 ML SYRINGE SUBCUT SCH (08:39)
[2019-01-04] MEDS: INSULIN GLARGINE 100 UNIT/ML SUBCUT SCH (08:39)
[2019-01-04] MEDS: POLYETHYLENE GLYCOL POWDER 17 GM PACK PO SCH (08:39)
[2019-01-04] MEDS: amLODIPine 5 MG TABLET PO SCH (08:39)
[2019-01-04] MEDS: PANTOPRAZOLE 40 MG TABLET PO SCH (08:39)
[2019-01-04] MEDS: MEMANTINE 10 MG TABLET PO SCH ×2 (12:12→21:19)
[2019-01-04] MEDS: LEVOFLOXACIN 500 MG TABLET PO SCH (13:00)
[2019-01-04] MEDS: DONEPEZIL 5 MG TABLET PO SCH (21:19)
[2019-01-05 06:05] LABS: Calcium 8.5 MG/DL (8.5-10.1); Osmolality,Calculated 289.4 MOS/KG (273-304)
[2019-01-05] MEDS: POLYETHYLENE GLYCOL POWDER 17 GM PACK PO SCH (08:59)
[2019-01-05] MEDS: DOCUSATE SODIUM 100 MG CAPSULE PO SCH (08:59)
[2019-01-05] MEDS: ENOXAPARIN 40 MG/0.4 ML SYRINGE SUBCUT SCH (08:59)
[2019-01-05] MEDS: amLODIPine 5 MG TABLET PO SCH (08:59)
[2019-01-05] MEDS: MEMANTINE 10 MG TABLET PO SCH ×2 (08:59→20:53)
[2019-01-05] MEDS: PANTOPRAZOLE 40 MG TABLET PO SCH (08:59)
[2019-01-05] MEDS: INSULIN LISPRO 100 UNIT/ML SUBCUT SCH ×4 (09:00→20:53)
[2019-01-05] MEDS: INSULIN GLARGINE 100 UNIT/ML SUBCUT SCH (09:00)
[2019-01-05] MEDS: LEVOFLOXACIN 500 MG TABLET PO SCH (12:14)
[2019-01-05] MEDS: DONEPEZIL 5 MG TABLET PO SCH (20:53)
[2019-01-06] MEDS: ACETAMINOPHEN 325 MG TABLET PO PRN (01:05)
[2019-01-06] MEDS: INSULIN LISPRO 100 UNIT/ML SUBCUT SCH ×4 (08:44→20:55)
[2019-01-06] MEDS: amLODIPine 5 MG TABLET PO SCH (08:44)
[2019-01-06] MEDS: PANTOPRAZOLE 40 MG TABLET PO SCH (08:44)
[2019-01-06] MEDS: DOCUSATE SODIUM 100 MG CAPSULE PO SCH (08:44)
[2019-01-06] MEDS: MEMANTINE 10 MG TABLET PO SCH ×2 (08:44→20:55)
[2019-01-06] MEDS: POLYETHYLENE GLYCOL POWDER 17 GM PACK PO SCH (08:44)
[2019-01-06] MEDS: INSULIN GLARGINE 100 UNIT/ML SUBCUT SCH (08:45)
[2019-01-06] MEDS: ENOXAPARIN 40 MG/0.4 ML SYRINGE SUBCUT SCH (08:45)
[2019-01-06] MEDS: LEVOFLOXACIN 500 MG TABLET PO SCH (12:18)
[2019-01-06] MEDS: DONEPEZIL 5 MG TABLET PO SCH (20:55)
[2019-01-06] MEDS ORDERED: ONDANSETRON 4 MG TABLET PO PRN (21:41)
[2019-01-07 05:32] LABS: Basophils % 0.5 % (0.0-0.8); Eosinophils # 0.2 10*3/uL (0.0-0.87); Eosinophils % 3.4 % (0.00-10.9); Hematocrit 24.8 VOL% (35.7-47.0); Immature Granulocytes % 0.2 %; Immature Granulocytes Absolute 0.01 #; Lymphocytes % 47.6 % (21.3-54.2); Mean Corpuscular HGB Conc 32.3 GM/DL (32-36); Mean Corpuscular Volume 90.8 FL (87-102); Mean Platelet Volume 11.1 FL (9.6-12.0); Monocytes % 5.8 % (1.7-12.7); Neutrophils % 42.5 % (38.7-73.9); Platelet Count 237 T/CUMM (130-400); Red Blood Count 2.73 MC/CUMM (3.8-5.5); Red Cell Distribution Width 12.5 % (9.3-17.3); White Blood Count 6.3 T/CUMM (4-12)
[2019-01-07 05:43] LABS: Calcium 8.4 MG/DL (8.5-10.1)
[2019-01-07] MEDS: LEVOFLOXACIN 500 MG TABLET PO SCH (08:32)
[2019-01-07] MEDS: PANTOPRAZOLE 40 MG TABLET PO SCH (08:32)
[2019-01-07] MEDS: MEMANTINE 10 MG TABLET PO SCH (08:32)
[2019-01-07] MEDS: DOCUSATE SODIUM 100 MG CAPSULE PO SCH (08:32)
[2019-01-07] MEDS: POLYETHYLENE GLYCOL POWDER 17 GM PACK PO SCH (08:33)
[2019-01-07] MEDS: INSULIN LISPRO 100 UNIT/ML SUBCUT SCH ×3 (08:33→16:06)
[2019-01-07] MEDS: amLODIPine 5 MG TABLET PO SCH (08:33)
[2019-01-07] MEDS: ENOXAPARIN 40 MG/0.4 ML SYRINGE SUBCUT SCH (08:33)
[2019-01-07] MEDS: INSULIN GLARGINE 100 UNIT/ML SUBCUT SCH (08:34)
[2019-01-07 16:06] VITALS: BP 116/63
== END 2019-01-07 19:55 | disposition home health service (06) | DRG 638 ==
LOC: SUATTDRO 21:09 → N.CC 21:09 → N.2E 01-02 16:14
PROVIDERS: ADMIT Internal Medicine; ATTEND Internal Medicine

== ENCOUNTER 2019-01-25 02:50 | Inpatient (IN) ==
[2019-01-25] MEDS ORDERED: POTASSIUM CHLORIDE RIDER 20 MEQ in PREMIX 1 EACH IV PRN (04:38)
[2019-01-25] MEDS ORDERED: SODIUM BICARB INJ 100 MEQ in STERILE WATER INJ 400 ML IV PRN (04:38)
[2019-01-25] MEDS ORDERED: MAGNESIUM SULF RIDER 4 GM in PREMIX 1 EACH IV PRN (04:38)
[2019-01-25] MEDS ORDERED: SODIUM PHOSPHATE IV PRN (04:38)
[2019-01-25] MEDS ORDERED: SODIUM CHLORIDE 0.9% IV PRN (04:38)
[2019-01-25] MEDS ORDERED: DEXTROSE 50% 25 GM/50 ML VIAL IV PRN ×2 (04:38)
[2019-01-25] MEDS ORDERED: SODIUM CHLORIDE 0.9% 1,000 ML IV SCH ×2 (04:40→06:40)
[2019-01-25] MEDS ORDERED: INSULIN REGULAR DRIP 100 ML IV SCH (05:00)
[2019-01-25] MEDS ORDERED: ZIPRASIDONE 20 MG/1 ML VIAL IM PRN (05:38)
[2019-01-25 05:44] LABS: Apearance,Urine Slightly Hazy (Clear); Bacteria,Urine Occasional /HPF (Few); Bilirubin,Urine Negative (Negative); Blood, Urine Small mg/dL (Negative); Glucose,Urine (UA) >=500 mg/dL (Negative); Ketones,Urine 5 mg/dL (Negative); Mucus,Urine Occasional /LPF (Occasional); Nitrite,Urine Negative (Negative); Protein,Urine Negative; RBC,Urine 1 /HPF (0-4); Squamous Epithelial Cell,Urine Occasional /HPF (0-10); Urine Color Yellow (Yellow); Urine Specific Gravity 1.024 (1.001-1.035); Urine Urobilinogen < 2.0 EU/DL (0.2-1.0); WBC,Urine <1 /HPF (0-6)
[2019-01-25 06:43] LABS: Calcium 8.6 MG/DL (8.5-10.1); Osmolality,Calculated 344.7 MOS/KG (273-304)
[2019-01-25 09:24] LABS: Calcium 8.4 MG/DL (8.5-10.1); Osmolality,Calculated 348.9 MOS/KG (273-304)
[2019-01-25] MEDS: POTASSIUM CHLORIDE RIDER 10 MEQ in PREMIX 1 EACH IV PRN ×2 (09:41→10:42)
[2019-01-25] MEDS: ENOXAPARIN 40 MG/0.4 ML SYRINGE SUBCUT SCH (09:41)
[2019-01-25] MEDS: SODIUM CHLORIDE 0.45% 1,000 ML IV SCH ×2 (11:37→21:35)
[2019-01-25 12:32] LABS: Calcium 8.5 MG/DL (8.5-10.1); Osmolality,Calculated 329.7 MOS/KG (273-304)
[2019-01-25] MEDS: SODIUM CHLOR 0.45% KCL 20 MEQ 20 MEQ/1,000 ML BAG IV SCH ×3 (13:03→21:37)
[2019-01-25 15:08] LABS: Basophils % 0.1 % (0.0-0.8); Eosinophils % 0.1 % (0.00-10.9); Hematocrit 28.6 VOL% (35.7-47.0); Hemoglobin 9.1 GM/DL (12.0-16.0); Immature Granulocytes % 0.5 %; Immature Granulocytes Absolute 0.06 #; Lymphocytes # 1.3 10*3/uL (1.4-4.0); Lymphocytes % 10.5 % (21.3-54.2); Mean Corpuscular HGB Conc 31.8 GM/DL (32-36); Mean Corpuscular Volume 93.5 FL (87-102); Mean Platelet Volume 12.1 FL (9.6-12.0); Monocytes % 7.3 % (1.7-12.7); Neutrophils % 81.5 % (38.7-73.9); Platelet Count 175 T/CUMM (130-400); Red Blood Count 3.06 MC/CUMM (3.8-5.5); White Blood Count 12.7 T/CUMM (4-12)
[2019-01-25 15:32] LABS: Calcium 8.3 MG/DL (8.5-10.1)
[2019-01-25 17:20] LABS: Osmolality,Calculated 317.1 MOS/KG (273-304)
[2019-01-25 21:00] LABS: Osmolality,Calculated 312.7 MOS/KG (273-304)
[2019-01-25] MEDS ORDERED: DEXTROSE 10% 250 ML BAG IV PRN (21:31)
[2019-01-25] MEDS ORDERED: INSULIN REGULAR 100 UNIT/ML SUBCUT SCH (22:00)
[2019-01-26] MEDS: INSULIN REGULAR 100 UNIT/ML SUBCUT SCH ×6 (01:25→20:32)
[2019-01-26] MEDS: SODIUM CHLORIDE 0.45% 1,000 ML IV SCH ×2 (05:32→16:37)
[2019-01-26 06:16] LABS: Basophils % 0.2 % (0.0-0.8); Eosinophils # 0.1 10*3/uL (0.0-0.87); Eosinophils % 1.2 % (0.00-10.9); Hematocrit 27.3 VOL% (35.7-47.0); Hemoglobin 8.5 GM/DL (12.0-16.0); Immature Granulocytes % 0.6 %; Immature Granulocytes Absolute 0.07 #; Lymphocytes # 1.3 10*3/uL (1.4-4.0); Mean Corpuscular HGB Conc 31.1 GM/DL (32-36); Mean Corpuscular Volume 94.5 FL (87-102); Mean Platelet Volume 12.9 FL (9.6-12.0); Monocytes % 5.7 % (1.7-12.7); Neutrophils % 80.3 % (38.7-73.9); Platelet Count 145 T/CUMM (130-400); Red Blood Count 2.89 MC/CUMM (3.8-5.5); Red Cell Distribution Width 13.1 % (9.3-17.3); White Blood Count 10.8 T/CUMM (4-12)
[2019-01-26 06:45] LABS: Calcium 8.1 MG/DL (8.5-10.1); Osmolality,Calculated 302.4 MOS/KG (273-304)
[2019-01-26] MEDS: MAGNESIUM SULF RIDER 2 GM in PREMIX 1 EACH IV PRN (06:50)
[2019-01-26] MEDS: ENOXAPARIN 40 MG/0.4 ML SYRINGE SUBCUT SCH (08:11)
[2019-01-26] MEDS ORDERED: ENOXAPARIN 30 MG/0.3 ML SYRINGE SUBCUT SCH (12:00)
[2019-01-26] MEDS: LISINOPRIL 20 MG TABLET PO SCH (12:11)
[2019-01-26] MEDS: ASPIRIN EC 81 MG TABLET PO SCH (12:11)
[2019-01-26] MEDS: amLODIPine 5 MG TABLET PO SCH (12:11)
[2019-01-26] MEDS: sitaGLIPtin 25 MG TABLET PO SCH (12:11)
[2019-01-26] MEDS: MEMANTINE 10 MG TABLET PO SCH ×2 (12:11→20:32)
[2019-01-26] MEDS: hydrALAZINE 10 MG TABLET PO SCH ×2 (16:34→20:32)
[2019-01-26] MEDS: DONEPEZIL 5 MG TABLET PO SCH (20:31)
[2019-01-27] MEDS: INSULIN REGULAR 100 UNIT/ML SUBCUT SCH ×6 (00:17→20:42)
[2019-01-27] MEDS: SODIUM CHLORIDE 0.45% 1,000 ML IV SCH ×4 (00:38→23:27)
[2019-01-27 05:45] LABS: Basophils % 0.1 % (0.0-0.8); Eosinophils # 0.1 10*3/uL (0.0-0.87); Eosinophils % 1.2 % (0.00-10.9); Hematocrit 27.9 VOL% (35.7-47.0); Immature Granulocytes % 0.6 %; Immature Granulocytes Absolute 0.05 #; Lymphocytes # 1.5 10*3/uL (1.4-4.0); Mean Corpuscular HGB Conc 32.3 GM/DL (32-36); Mean Corpuscular Volume 92.7 FL (87-102); Mean Platelet Volume 12.5 FL (9.6-12.0); Monocytes % 6.7 % (1.7-12.7); Neutrophils % 73.4 % (38.7-73.9); Platelet Count 130 T/CUMM (130-400); Red Blood Count 3.01 MC/CUMM (3.8-5.5); Red Cell Distribution Width 12.7 % (9.3-17.3); White Blood Count 8.6 T/CUMM (4-12)
[2019-01-27 06:01] LABS: Calcium 7.9 MG/DL (8.5-10.1)
[2019-01-27] MEDS: MEMANTINE 10 MG TABLET PO SCH ×2 (08:46→20:42)
[2019-01-27] MEDS: LISINOPRIL 20 MG TABLET PO SCH (08:46)
[2019-01-27] MEDS: amLODIPine 5 MG TABLET PO SCH (08:46)
[2019-01-27] MEDS: ASPIRIN EC 81 MG TABLET PO SCH (08:46)
[2019-01-27] MEDS: sitaGLIPtin 25 MG TABLET PO SCH (08:46)
[2019-01-27] MEDS: hydrALAZINE 10 MG TABLET PO SCH ×3 (08:47→20:42)
[2019-01-27] MEDS: MAGNESIUM SULF RIDER 2 GM in PREMIX 1 EACH IV PRN (08:51)
[2019-01-27] MEDS: ENOXAPARIN 30 MG/0.3 ML SYRINGE SUBCUT SCH (10:52)
[2019-01-27] MEDS: POTASSIUM CHLORIDE RIDER 10 MEQ in PREMIX 1 EACH IV PRN ×2 (12:05→14:51)
[2019-01-27] MEDS: DONEPEZIL 5 MG TABLET PO SCH (20:42)
[2019-01-27] MEDS: ACETAMINOPHEN 500 MG TABLET PO PRN (20:42)
[2019-01-28] MEDS: INSULIN REGULAR 100 UNIT/ML SUBCUT SCH ×5 (00:02→17:50)
[2019-01-28] MEDS: ACETAMINOPHEN 500 MG TABLET PO PRN (04:09)
[2019-01-28 05:17] LABS: Basophils % 0.1 % (0.0-0.8); Eosinophils # 0.1 10*3/uL (0.0-0.87); Eosinophils % 2.1 % (0.00-10.9); Hematocrit 29.2 VOL% (35.7-47.0); Hemoglobin 9.3 GM/DL (12.0-16.0); Immature Granulocytes % 0.4 %; Immature Granulocytes Absolute 0.03 #; Lymphocytes # 1.2 10*3/uL (1.4-4.0); Mean Corpuscular HGB Conc 31.8 GM/DL (32-36); Mean Corpuscular Volume 91.8 FL (87-102); Mean Platelet Volume 12.8 FL (9.6-12.0); Neutrophils % 72.4 % (38.7-73.9); Platelet Count 130 T/CUMM (130-400); Red Blood Count 3.18 MC/CUMM (3.8-5.5); Red Cell Distribution Width 12.4 % (9.3-17.3); White Blood Count 6.7 T/CUMM (4-12)
[2019-01-28 05:57] LABS: Calcium 8.3 MG/DL (8.5-10.1); Osmolality,Calculated 285.4 MOS/KG (273-304)
[2019-01-28] MEDS: SODIUM CHLORIDE 0.45% 1,000 ML IV SCH ×2 (06:18→13:37)
[2019-01-28] MEDS: hydrALAZINE 10 MG TABLET PO SCH ×2 (08:52→15:25)
[2019-01-28] MEDS: LISINOPRIL 20 MG TABLET PO SCH (08:52)
[2019-01-28] MEDS: ENOXAPARIN 30 MG/0.3 ML SYRINGE SUBCUT SCH (08:52)
[2019-01-28] MEDS: ASPIRIN EC 81 MG TABLET PO SCH (08:52)
[2019-01-28] MEDS: sitaGLIPtin 25 MG TABLET PO SCH (08:52)
[2019-01-28] MEDS: MEMANTINE 10 MG TABLET PO SCH (08:52)
[2019-01-28] MEDS: amLODIPine 5 MG TABLET PO SCH (08:52)
[2019-01-28 21:16] VITALS: BP 145/76
== END 2019-01-28 19:46 | disposition home health service (06) | DRG 638 ==
LOC: SUATTDRO 04:19 → N.ICU 04:19 → N.5E 01-26 11:42
PROVIDERS: ADMIT Internal Medicine; ATTEND Internal Medicine

== ENCOUNTER 2019-01-29 19:49 | Inpatient (IN) ==
[2019-01-29] MEDS ORDERED: NICOTINE 21 MG/24 HR PATCH TRANSDERM PRN (21:44)
[2019-01-29] MEDS ORDERED: diphenhydrAMINE CAP 25 MG CAPSULE PO PRN (21:44)
[2019-01-29] MEDS ORDERED: BISACODYL 5 MG TABLET PO PRN (21:44)
[2019-01-29] MEDS ORDERED: ONDANSETRON 4 MG/2 ML VIAL IV PRN (21:44)
[2019-01-29 22:32] LABS: Basophils % 0.2 % (0.0-0.8); Hematocrit 36.5 VOL% (35.7-47.0); Hemoglobin 10.6 GM/DL (12.0-16.0); Immature Granulocytes Absolute 0.15 #; Lymphocytes # 1.1 10*3/uL (1.4-4.0); Lymphocytes % 7.8 % (21.3-54.2); Mean Corpuscular Volume 101.4 FL (87-102); Mean Platelet Volume 13.4 FL (9.6-12.0); Monocytes % 7.5 % (1.7-12.7); Neutrophils % 83.5 % (38.7-73.9); Platelet Count 112 T/CUMM (130-400); White Blood Count 14.6 T/CUMM (4-12)
[2019-01-29 22:52] LABS: ABG Base Excess -28.7 MMOL/L (-2.5-2.5); ABG HCO3 5.2 MMOL/L (20-26); ABG Oxygen Saturation 98.6 % (95-100)
[2019-01-29 22:56] LABS: ABG TCO2 8.4 MMOL/L (23-27)
[2019-01-29 22:57] LABS: ABG PH 7.009 (7.35-7.45)
[2019-01-29 22:58] LABS: Amorphous Crystals,Urine Occasional /HPF (Few); Apearance,Urine CLOUDY (Clear); Bilirubin,Urine Negative (Negative); Blood, Urine Moderate mg/dL (Negative); Glucose,Urine (UA) >=500 mg/dL (Negative); Hyaline Casts,Urine 13 /LPF (0-3); Ketones,Urine 80 mg/dL (Negative); Mucus,Urine Occasional /LPF (Occasional); Nitrite,Urine Negative (Negative); Protein,Urine 100 MG/DL; RBC,Urine 2 /HPF (0-4); Urine Color Yellow (Yellow); Urine Specific Gravity 1.012 (1.001-1.035); Urine Urobilinogen < 2.0 EU/DL (0.2-1.0); WBC,Urine 4 /HPF (0-6)
[2019-01-29 22:58] LABS: ABG PCO2 8.4 MM HG (35-48)
[2019-01-30] MEDS ORDERED: SODIUM PHOSPHATE IV PRN (00:05)
[2019-01-30] MEDS ORDERED: MAGNESIUM SULF RIDER 4 GM in PREMIX 1 EACH IV PRN (00:05)
[2019-01-30] MEDS ORDERED: MAGNESIUM SULF RIDER 2 GM in PREMIX 1 EACH IV PRN (00:05)
[2019-01-30] MEDS ORDERED: SODIUM CHLORIDE 0.9% 1,000 ML IV ONE (00:05)
[2019-01-30] MEDS ORDERED: POTASSIUM CHLORIDE RIDER 10 MEQ in PREMIX 1 EACH IV PRN (00:05)
[2019-01-30] MEDS ORDERED: SODIUM BICARB INJ 100 MEQ in STERILE WATER INJ 400 ML IV PRN (00:05)
[2019-01-30] MEDS ORDERED: DEXTROSE 10% 250 ML BAG IV PRN (00:05)
[2019-01-30] MEDS ORDERED: INSULIN REGULAR 100 UNIT/ML IV ONE (00:05)
[2019-01-30] MEDS ORDERED: SODIUM BICARBONATE 50 MEQ/50 ML VIAL IV ONE (00:05)
[2019-01-30] MEDS ORDERED: SODIUM CHLORIDE 0.9% IV PRN (00:05)
[2019-01-30] MEDS ORDERED: INSULIN REGULAR DRIP 100 ML IV SCH (00:30)
[2019-01-30 00:39] LABS: Basophils % 0.1 % (0.0-0.8); Hematocrit 31.8 VOL% (35.7-47.0); Hemoglobin 9.4 GM/DL (12.0-16.0); Immature Granulocytes % 1.5 %; Immature Granulocytes Absolute 0.24 #; Lymphocytes # 1.3 10*3/uL (1.4-4.0); Lymphocytes % 8.1 % (21.3-54.2); Mean Corpuscular HGB Conc 29.6 GM/DL (32-36); Mean Platelet Volume 12.4 FL (9.6-12.0); Neutrophils % 82.3 % (38.7-73.9); Platelet Count 214 T/CUMM (130-400); Red Blood Count 3.18 MC/CUMM (3.8-5.5); Red Cell Distribution Width 12.9 % (9.3-17.3); White Blood Count 16.2 T/CUMM (4-12)
[2019-01-30 00:56] LABS: Calcium 8.5 MG/DL (8.5-10.1); Osmolality,Calculated 308.1 MOS/KG (273-304)
[2019-01-30] MEDS: SODIUM CHLORIDE 0.9% 1,000 ML IV SCH ×4 (01:18→11:56)
[2019-01-30 02:29] LABS: ABG Base Excess -24.8 MMOL/L (-2.5-2.5); ABG HCO3 6.9 MMOL/L (20-26); ABG Oxygen Saturation 98.6 % (95-100); Allen Test Positive; Pt O2 Delivery Device Room Air
[2019-01-30 02:34] LABS: ABG PH 7.087 (7.35-7.45)
[2019-01-30 02:36] LABS: ABG PCO2 13.7 MM HG (35-48)
[2019-01-30 04:11] LABS: ABG Base Excess -21.6 MMOL/L (-2.5-2.5); ABG HCO3 8.8 MMOL/L (20-26); ABG Oxygen Saturation 99.3 % (95-100); ABG TCO2 5.4 MMOL/L (23-27); Allen Test Positive; Pt O2 Delivery Device Room Air
[2019-01-30 04:16] LABS: ABG PCO2 15.5 MM HG (35-48); ABG PH 7.178 (7.35-7.45)
[2019-01-30] MEDS ORDERED: SODIUM CHLORIDE 0.9% 1,000 ML IV SCH (05:05)
[2019-01-30] MEDS: DEXTROSE 5% NACL 0.9% 1,000 ML IV SCH ×2 (05:43→10:17)
[2019-01-30 06:18] LABS: Calcium 7.9 MG/DL (8.5-10.1); Osmolality,Calculated 311.4 MOS/KG (273-304)
[2019-01-30 06:30] LABS: ABG HCO3 10.3 MMOL/L (20-26); ABG PH 7.217 (7.35-7.45); Allen Test Positive; Pt O2 Delivery Device Room Air
[2019-01-30 06:40] LABS: ABG PCO2 16.5 MM HG (35-48)
[2019-01-30 08:12] LABS: Calcium 7.8 MG/DL (8.5-10.1); Osmolality,Calculated 305.9 MOS/KG (273-304)
[2019-01-30] MEDS: DEXTROSE 10% 250 ML BAG IV PRN (09:35)
[2019-01-30] MEDS: cefTRIAXone 1,000 MG in SYRINGE 1 EACH IV SCH (10:26)
[2019-01-30] MEDS: ENOXAPARIN 30 MG/0.3 ML SYRINGE SUBCUT SCH (10:26)
[2019-01-30] MEDS: DEXTROSE 10% 250 ML IV SCH ×2 (10:34→10:35)
[2019-01-30] MEDS: DEXT 5% NACL 0.45% KCL 20 MEQ 20 MEQ/1,000 ML BAG IV SCH ×2 (11:27→15:17)
[2019-01-30 12:36] LABS: Calcium 7.6 MG/DL (8.5-10.1)
[2019-01-30 16:18] LABS: Calcium 7.6 MG/DL (8.5-10.1); Osmolality,Calculated 300.1 MOS/KG (273-304)
[2019-01-30] MEDS ORDERED: DEXTROSE 50% 25 GM/50 ML VIAL IV PRN (16:40)
[2019-01-30] MEDS ORDERED: GLUCAGON 1 MG VIAL IM PRN (16:40)
[2019-01-30] MEDS ORDERED: SODIUM CHLORIDE 0.45% 1,000 ML IV SCH (17:05)
[2019-01-30] MEDS ORDERED: POTASSIUM CHLORIDE INJ 40 MEQ in DEXTROSE 5% 1,000 ML IV SCH (18:00)
[2019-01-30] MEDS: INSULIN REGULAR 100 UNIT/ML SUBCUT SCH ×2 (18:08→21:13)
[2019-01-30 20:24] LABS: Calcium 7.5 MG/DL (8.5-10.1); Osmolality,Calculated 290.1 MOS/KG (273-304)
[2019-01-31] MEDS: INSULIN REGULAR 100 UNIT/ML SUBCUT SCH ×3 (01:02→18:20)
[2019-01-31] MEDS: SODIUM CHLOR 0.45% KCL 20 MEQ 20 MEQ/1,000 ML BAG IV SCH ×2 (01:02→09:50)
[2019-01-31] MEDS: DEXTROSE 10% 250 ML BAG IV PRN (04:10)
[2019-01-31 04:40] LABS: Basophils % 0.1 % (0.0-0.8); Eosinophils # 0.1 10*3/uL (0.0-0.87); Eosinophils % 1.5 % (0.00-10.9); Hematocrit 24.9 VOL% (35.7-47.0); Hemoglobin 8.1 GM/DL (12.0-16.0); Immature Granulocytes % 0.3 %; Immature Granulocytes Absolute 0.02 #; Lymphocytes % 26.3 % (21.3-54.2); Mean Corpuscular HGB Conc 32.5 GM/DL (32-36); Mean Corpuscular Volume 92.2 FL (87-102); Mean Platelet Volume 11.3 FL (9.6-12.0); Monocytes % 8.9 % (1.7-12.7); Neutrophils % 62.9 % (38.7-73.9); Platelet Count 138 T/CUMM (130-400); Red Cell Distribution Width 13.2 % (9.3-17.3); White Blood Count 7.4 T/CUMM (4-12)
[2019-01-31 04:57] LABS: Calcium 7.8 MG/DL (8.5-10.1); Osmolality,Calculated 291.4 MOS/KG (273-304)
[2019-01-31 05:05] LABS: % Iron Saturation 12.2 % (18-50)
[2019-01-31] MEDS: ENOXAPARIN 30 MG/0.3 ML SYRINGE SUBCUT SCH (09:41)
[2019-01-31] MEDS: cefTRIAXone 1,000 MG in SYRINGE 1 EACH IV SCH (09:41)
[2019-01-31 11:50] LABS: Calcium 7.8 MG/DL (8.5-10.1); Osmolality,Calculated 280.8 MOS/KG (273-304)
[2019-01-31] MEDS: DEXT 5% NACL 0.45% KCL 20 MEQ 20 MEQ/1,000 ML BAG IV SCH ×2 (12:30→21:40)
[2019-01-31] MEDS: INSULIN REGULAR DRIP 100 ML IV PRN (13:15)
[2019-01-31 14:55] LABS: Calcium 7.8 MG/DL (8.5-10.1); Osmolality,Calculated 287.1 MOS/KG (273-304)
[2019-01-31 19:01] LABS: Calcium 7.9 MG/DL (8.5-10.1)
[2019-01-31 21:14] LABS: ABG Base Excess -8.8 MMOL/L (-2.5-2.5); ABG HCO3 17.4 MMOL/L (20-26); ABG Oxygen Saturation 98.6 % (95-100); ABG PCO2 24.6 MM HG (35-48); ABG PH 7.391 (7.35-7.45); ABG PO2 95.3 MM HG (80-95); ABG TCO2 13.6 MMOL/L (23-27); Allen Test Positive; Pt O2 Delivery Device Room Air
[2019-01-31] MEDS: MORPHINE 4 MG/1 ML VIAL IV PRN (21:24)
[2019-01-31 23:18] LABS: Calcium 7.8 MG/DL (8.5-10.1); Osmolality,Calculated 283.8 MOS/KG (273-304)
[2019-02-01 03:45] LABS: Calcium 7.8 MG/DL (8.5-10.1); Osmolality,Calculated 288.8 MOS/KG (273-304)
[2019-02-01 03:54] LABS: Albumin 2.2 G/DL (3.4-5.0); Calcium 7.6 MG/DL (8.5-10.1); Osmolality,Calculated 288.8 MOS/KG (273-304)
[2019-02-01] MEDS: DEXTROSE 10% 250 ML BAG IV PRN (06:41)
[2019-02-01] MEDS: DEXT 5% NACL 0.45% KCL 20 MEQ 20 MEQ/1,000 ML BAG IV SCH ×2 (07:02→16:09)
[2019-02-01 07:58] LABS: Calcium 7.8 MG/DL (8.5-10.1)
[2019-02-01] MEDS: ENOXAPARIN 30 MG/0.3 ML SYRINGE SUBCUT SCH (11:36)
[2019-02-01 12:21] LABS: Calcium 7.7 MG/DL (8.5-10.1); Osmolality,Calculated 284.5 MOS/KG (273-304)
[2019-02-01 15:32] LABS: Calcium 8.1 MG/DL (8.5-10.1); Osmolality,Calculated 280.8 MOS/KG (273-304)
[2019-02-01] MEDS: POTASSIUM PHOS/SOD PHOS POWDER 250 MG PACK PO SCH ×3 (16:09→21:04)
[2019-02-01] MEDS: ACETAMINOPHEN 325 MG TABLET PO PRN (16:10)
[2019-02-01] MEDS: INSULIN REGULAR DRIP 100 ML IV PRN (17:25)
[2019-02-01] MEDS: MORPHINE 4 MG/1 ML VIAL IV PRN (19:04)
[2019-02-01 19:13] LABS: Calcium 7.7 MG/DL (8.5-10.1); Osmolality,Calculated 280.8 MOS/KG (273-304)
[2019-02-01] MEDS: SODIUM CHLOR 0.45% KCL 20 MEQ 20 MEQ/1,000 ML BAG IV SCH (20:16)
[2019-02-01 23:50] LABS: Calcium 7.9 MG/DL (8.5-10.1); Osmolality,Calculated 278.3 MOS/KG (273-304)
[2019-02-02] MEDS: DEXT 5% NACL 0.45% KCL 20 MEQ 20 MEQ/1,000 ML BAG IV SCH (00:07)
[2019-02-02] MEDS: ACETAMINOPHEN 325 MG TABLET PO PRN ×3 (03:31→21:45)
[2019-02-02 04:26] LABS: Calcium 7.9 MG/DL (8.5-10.1); Osmolality,Calculated 278.3 MOS/KG (273-304)
[2019-02-02 04:27] LABS: Albumin 2.1 G/DL (3.4-5.0); Calcium 7.9 MG/DL (8.5-10.1); Osmolality,Calculated 279.3 MOS/KG (273-304)
[2019-02-02] MEDS: SODIUM CHLOR 0.45% KCL 20 MEQ 20 MEQ/1,000 ML BAG IV SCH (04:46)
[2019-02-02] MEDS ORDERED: SODIUM CHLORIDE 0.45% 1,000 ML IV SCH (05:00)
[2019-02-02 07:14] LABS: Calcium 7.8 MG/DL (8.5-10.1); Osmolality,Calculated 284.1 MOS/KG (273-304)
[2019-02-02] MEDS ORDERED: INSULIN REGULAR 100 UNIT/ML SUBCUT SCH (08:00)
[2019-02-02] MEDS: ENOXAPARIN 40 MG/0.4 ML SYRINGE SUBCUT SCH (08:09)
[2019-02-02] MEDS: POTASSIUM PHOS/SOD PHOS POWDER 250 MG PACK PO SCH (08:09)
[2019-02-02] MEDS: INSULIN REGULAR 100 UNIT/ML SUBCUT SCH ×3 (12:27→21:02)
[2019-02-03 04:59] LABS: Albumin 2.3 G/DL (3.4-5.0); Calcium 7.9 MG/DL (8.5-10.1)
[2019-02-03] MEDS: INSULIN GLARGINE 100 UNIT/ML SUBCUT SCH (08:42)
[2019-02-03] MEDS: ENOXAPARIN 40 MG/0.4 ML SYRINGE SUBCUT SCH (08:43)
[2019-02-03] MEDS: INSULIN REGULAR 100 UNIT/ML SUBCUT SCH ×4 (08:43→22:00)
[2019-02-03] MEDS: hydrALAZINE 10 MG TABLET PO SCH ×3 (08:44→21:59)
[2019-02-03] MEDS: MEMANTINE 10 MG TABLET PO SCH ×2 (08:44→21:59)
[2019-02-03] MEDS: sitaGLIPtin 25 MG TABLET PO SCH (08:44)
[2019-02-03] MEDS: ASPIRIN EC 81 MG TABLET PO SCH (08:44)
[2019-02-03] MEDS: glipiZIDE 10 MG TABLET PO SCH ×2 (08:44→22:00)
[2019-02-03] MEDS: amLODIPine 5 MG TABLET PO SCH (08:44)
[2019-02-03] MEDS ORDERED: INSULIN GLARGINE 100 UNIT/ML SUBCUT SCH (09:00)
[2019-02-03 11:40] LABS: Basophils % 0.2 % (0.0-0.8); Eosinophils % 0.5 % (0.00-10.9); Hematocrit 22.1 VOL% (35.7-47.0); Hemoglobin 7.3 GM/DL (12.0-16.0); Immature Granulocytes % 0.9 %; Immature Granulocytes Absolute 0.05 #; Lymphocytes # 0.9 10*3/uL (1.4-4.0); Lymphocytes % 16.6 % (21.3-54.2); Mean Corpuscular Volume 89.5 FL (87-102); Mean Platelet Volume 11.8 FL (9.6-12.0); Monocytes % 11.6 % (1.7-12.7); Neutrophils % 70.2 % (38.7-73.9); Platelet Count 140 T/CUMM (130-400); Red Blood Count 2.47 MC/CUMM (3.8-5.5); Red Cell Distribution Width 13.2 % (9.3-17.3); White Blood Count 5.7 T/CUMM (4-12)
[2019-02-03] MEDS: MORPHINE 4 MG/1 ML VIAL IV PRN (18:36)
[2019-02-03] MEDS: DONEPEZIL 5 MG TABLET PO SCH (22:00)
[2019-02-04 06:29] LABS: Basophils % 0.3 % (0.0-0.8); Eosinophils # 0.1 10*3/uL (0.0-0.87); Eosinophils % 3.3 % (0.00-10.9); Hematocrit 21.5 VOL% (35.7-47.0); Immature Granulocytes % 0.8 %; Immature Granulocytes Absolute 0.03 #; Lymphocytes # 1.3 10*3/uL (1.4-4.0); Lymphocytes % 32.7 % (21.3-54.2); Mean Corpuscular HGB Conc 32.6 GM/DL (32-36); Mean Platelet Volume 10.7 FL (9.6-12.0); Monocytes % 10.6 % (1.7-12.7); Neutrophils % 52.3 % (38.7-73.9); Platelet Count 251 T/CUMM (130-400); Red Blood Count 2.39 MC/CUMM (3.8-5.5); Red Cell Distribution Width 13.2 % (9.3-17.3)
[2019-02-04 06:51] LABS: Calcium 7.9 MG/DL (8.5-10.1); Osmolality,Calculated 279.3 MOS/KG (273-304)
[2019-02-04] MEDS ORDERED: TUBERCULIN SKIN TEST 0.1 ML SYRINGE INTRADERM ONE (09:44)
[2019-02-04] MEDS: INSULIN GLARGINE 100 UNIT/ML SUBCUT SCH (10:27)
[2019-02-04] MEDS: INSULIN REGULAR 100 UNIT/ML SUBCUT SCH ×4 (10:27→21:11)
[2019-02-04] MEDS: amLODIPine 5 MG TABLET PO SCH (10:28)
[2019-02-04] MEDS: ASPIRIN EC 81 MG TABLET PO SCH (10:28)
[2019-02-04] MEDS: glipiZIDE 10 MG TABLET PO SCH ×2 (10:28→21:11)
[2019-02-04] MEDS: hydrALAZINE 10 MG TABLET PO SCH ×3 (10:28→21:11)
[2019-02-04] MEDS: MEMANTINE 10 MG TABLET PO SCH ×2 (10:28→21:11)
[2019-02-04] MEDS: sitaGLIPtin 25 MG TABLET PO SCH (10:28)
[2019-02-04] MEDS: ENOXAPARIN 40 MG/0.4 ML SYRINGE SUBCUT SCH (10:35)
[2019-02-04] MEDS: ACETAMINOPHEN 325 MG TABLET PO PRN (10:35)
[2019-02-04] MEDS ORDERED: SODIUM CHLORIDE 0.9% 1,000 ML IV PRN (13:16)
[2019-02-04] MEDS ORDERED: INSULIN GLARGINE 100 UNIT/ML SUBCUT SCH (13:26)
[2019-02-04] MEDS: DONEPEZIL 5 MG TABLET PO SCH (21:11)
[2019-02-04] MEDS: MORPHINE 4 MG/1 ML VIAL IV PRN (22:16)
[2019-02-05 00:59] LABS: Hematocrit 31.1 VOL% (35.7-47.0); Hemoglobin 10.3 GM/DL (12.0-16.0)
[2019-02-05 08:11] LABS: Calcium 7.7 MG/DL (8.5-10.1); Osmolality,Calculated 283.5 MOS/KG (273-304)
[2019-02-05] MEDS: hydrALAZINE 10 MG TABLET PO SCH (09:56)
[2019-02-05] MEDS: glipiZIDE 10 MG TABLET PO SCH (09:56)
[2019-02-05] MEDS: sitaGLIPtin 25 MG TABLET PO SCH (09:56)
[2019-02-05] MEDS: ASPIRIN EC 81 MG TABLET PO SCH (09:56)
[2019-02-05] MEDS: MEMANTINE 10 MG TABLET PO SCH (09:56)
[2019-02-05] MEDS: amLODIPine 5 MG TABLET PO SCH (09:57)
[2019-02-05] MEDS: INSULIN REGULAR 100 UNIT/ML SUBCUT SCH ×2 (09:58→12:55)
[2019-02-05] MEDS: ENOXAPARIN 40 MG/0.4 ML SYRINGE SUBCUT SCH (10:30)
[2019-02-05 11:45] VITALS: BP 126/84
== END 2019-02-05 13:40 | disposition swing bed (61) | DRG 638 ==
LOC: N.CC 21:08 → SUATTDRO 21:08 → N.4E 02-02 18:07
PROVIDERS: ADMIT Internal Medicine; ATTEND Hospitalist